=== PATIENT | male | born 1945 | race Caucasian/White ===

== ENCOUNTER 2021-01-14 20:43 | Emergency (ER) | payer OTHER ==
[~2021-01-14] VITALS: Ht 185.4 cm; Wt 88.0 kg
[2021-01-14] MEDS ORDERED: DOXYCYCLINE HY100 M2 PO (22:38)
[2021-01-14] MEDS ORDERED: ONDANSETRON ODT4 MG SL (22:41)
== END 2021-01-14 23:30 | disposition home or self-care (01) ==
LOC: ER1 20:43
DX: Z23 Encounter for immunization (principal); U07.1 COVID-19; J12.82 Pneumonia due to coronavirus disease 2019; E11.9 Type 2 diabetes mellitus without complications; J44.9 Chronic obstructive pulmonary disease, unspecified; I25.2 Old myocardial infarction; I11.0 Hypertensive heart disease with heart failure; I50.9 Heart failure, unspecified
CPT/HCPCS: 71045; 94664; 94760; 99284; M0243

== ENCOUNTER 2021-09-27 16:18 | Inpatient (IN) | payer OTHER ==
[~2021-09-27] VITALS: Ht 185.4 cm; Wt 74.4 kg
[~2021-09-27 16:18] MED LIST: DOXYCYCLINE HY100 M2 PO; ONDANSETRON ODT4 MG SL
[2021-09-27 17:53] LABS: HEMOGLOBIN 11.5 gm/dl (14.0-17.5); RED BLOOD COUNT 5.4 M/UL (4.20-5.50); WHITE BLOOD COUNT 10.6 K/UL (4.5-11.0)
[2021-09-27 18:15] LABS: BUN/CREATININE RATIO 22 (0-10)
[2021-09-28 06:54] LABS: BORDETELLA PARAPERTUSSIS Not Detected (Not Detectd); BORDETELLA PERTUSSIS Not Detected (Not Detectd); CHLAMYDIA PNEUMONIAE Not Detected (Not Detectd); CORONAVIRUS HKU1 Not Detected (Not Detectd); CORONAVIRUS NL63 Not Detected (Not Detectd); CORONOAVIRUS 229E Not Detected (Not Detectd); HUMAN METAPNEUMOVIRUS Not Detected (Not Detectd); HUMAN RHINOVIRUS/ENTEROVIRUS Not Detected (Not Detectd); INFLUENZA A Not Detected (Not Detectd); INFLUENZA B Not Detected (Not Detectd); MYCOPLASMA PNEUMONIAE Not Detected (Not Detectd); PARAINFLUENZA VIRUS 1 Not Detected (Not Detectd); PARAINFLUENZA VIRUS 2 Not Detected (Not Detectd); PARAINFLUENZA VIRUS 3 Not Detected (Not Detectd); PARAINFLUENZA VIRUS 4 Not Detected (Not Detectd); RESPIRATORY SYNCYTIAL VIRUS Not Detected (Not Detectd)
[2021-09-28 07:25] LABS: HEMOGLOBIN 12.8 gm/dl (14.0-17.5); WHITE BLOOD COUNT 12.7 K/UL (4.5-11.0)
[2021-09-28 07:29] LABS: RED BLOOD COUNT 6.2 M/UL (4.20-5.50)
[2021-09-28 08:04] LABS: CORONAVIRUS OC43 DETECTED (Not Detectd); SARS-CoV-2 NOT DETECTED (Not Detectd)
[2021-09-28] MEDS ORDERED: PROAIR HFA8.5 GM INH (11:07)
[2021-09-28] MEDS ORDERED: BREZTRI AEROS10.7 GM INH (11:08)
[2021-09-28] MEDS ORDERED: NIFEREX 150 MG150 MG PO (11:08)
[2021-09-28] MEDS ORDERED: JARDIANCE10 MG PO (11:08)
[2021-09-28] MEDS ORDERED: FUROSEMIDE40 MG PO (11:09)
[2021-09-28] MEDS ORDERED: POTASSIUM CHLO10 ME2 PO (11:09)
[2021-09-28] MEDS ORDERED: FLOMAX 0.4 MG0.4 MG PO (11:09)
[2021-09-28] MEDS ORDERED: FINASTERIDE5 MG PO (11:09)
[2021-09-28] MEDS ORDERED: ALLOPURINOL100 MG PO (11:10)
[2021-09-28] MEDS ORDERED: ATORVASTATIN CA40 MG PO (11:10)
[2021-09-28] MEDS ORDERED: ENTRESTO 24 MG1 EACH PO (11:10)
[2021-09-28] MEDS ORDERED: OMEPRAZOLE20 MG PO (11:10)
[2021-09-28] MEDS ORDERED: TYLENOL EXTRA500 MG PO (11:11)
[2021-09-28] MEDS ORDERED: FEXOFENADINE H180 MG PO (11:11)
[2021-09-28] MEDS ORDERED: ASPIRIN EC81 MG PO (11:11)
[2021-09-29 19:47] LABS: URINE CREATININE 42.6 mg/dL
== END 2021-09-29 23:18 | disposition expired | DRG 871 ==
LOC: ER1 16:18 → CDU 18:57 → CCU 23:28
PROVIDERS: Preventive Medicine Occupational Medicine; ADMIT Internal Medicine
PROC: 3E03329 Introduction of Other Anti-infective into Peripheral Vein, Percutaneous Approach (ICD-10-PCS; principal; 2021-09-27)
PROC: 3E033XZ Introduction of Vasopressor into Peripheral Vein, Percutaneous Approach (ICD-10-PCS; 2021-09-28)
PROC: B24BZZZ Ultrasonography of Heart with Aorta (ICD-10-PCS; 2021-09-28)
DX: A41.9 Sepsis, unspecified organism (principal); K72.00 Acute and subacute hepatic failure without coma; G93.41 Metabolic encephalopathy; J18.9 Pneumonia, unspecified organism; R65.21 Severe sepsis with septic shock; J96.01 Acute respiratory failure with hypoxia; I50.43 Acute on chronic combined systolic (congestive) and diastolic (congestive) heart failure; N17.9 Acute kidney failure, unspecified; I13.0 Hypertensive heart and chronic kidney disease with heart failure and stage 1 through stage 4 chronic kidney disease, or unspecified chronic kidney disease; E87.2 Acidosis; I47.1 Supraventricular tachycardia; R44.3 Hallucinations, unspecified; J44.0 Chronic obstructive pulmonary disease with (acute) lower respiratory infection; I25.5 Ischemic cardiomyopathy; I51.7 Cardiomegaly; Z20.822 Contact with and (suspected) exposure to COVID-19; I49.3 Ventricular premature depolarization; I25.10 Atherosclerotic heart disease of native coronary artery without angina pectoris; N40.0 Benign prostatic hyperplasia without lower urinary tract symptoms; N18.30 Chronic kidney disease, stage 3 unspecified; M10.9 Gout, unspecified; R57.0 Cardiogenic shock; E87.5 Hyperkalemia; Z66 Do not resuscitate; D53.9 Nutritional anemia, unspecified; R62.7 Adult failure to thrive; Z98.890 Other specified postprocedural states; Z83.6 Family history of other diseases of the respiratory system; Z85.528 Personal history of other malignant neoplasm of kidney; Z86.16 Personal history of COVID-19; I25.2 Old myocardial infarction; Z95.810 Presence of automatic (implantable) cardiac defibrillator; Z88.8 Allergy status to other drugs, medicaments and biological substances; Z79.82 Long term (current) use of aspirin; Z79.899 Other long term (current) drug therapy; Z79.4 Long term (current) use of insulin; Z51.5 Encounter for palliative care; Z68.21 Body mass index [BMI] 21.0-21.9, adult
CPT/HCPCS: ECHO; 0240U; 36415; 36600; 70450; 71045; 80048; 80053; 80202; 81001; 82009; 82550; 82553; 82565; 82570; 82575; 82728; 82803; 82962; 83036; 83540; 83550; 83605; 83690; 83880; 84132; 84484; 85025; 85027; 85652; 86140; 87040; 87081; 87086; 87633; 93005; 93306; 94640; 94664; 94760; 96365; 96367; 99285; C9113; J0692; J1250; J1644; J1720; J1940; J2270; J2543; J3370; J7042; J7070